=== PATIENT | male | born 1995 | race African-American/Black ===

== ENCOUNTER 2020-07-25 05:08 | Emergency (ER) | payer BC ==
[~2020-07-25] VITALS: Ht 335.3 cm; Wt 90.0 kg
[~2020-07-25 05:08] MED LIST: DOXY100C2 PO; PRED50TA PO
--- NOTE | 2020-07-25 05:14 | PHYS DOC ---
Past History Past Medical History: No Pertinent History, Asthma Past Surgical History: No Surgical History Smoking: Cigarettes, Greater than 1 pack/day Alcohol Use: Rarely Drug Use: Amphetamine, Cocaine, Heroin, Marijuana, Methamphetamine, Opiates General Adult HPI: HPI: ".. I ve been off drugs for a while... and I decided to treat myself... I did about a dime worth of heroin IV..."..." I have been doing good.... Off drugs... I just finished a 3-year half-way sentence in [place] for assaulting a [place] [employer] police officer with a gun...... but I was shooting up and that is the last thing I remember..." ..." I am fine now just a little wheezy ... It made my asthma kick up ....".." I good now. .. can I be discharged..."pt. Patient is a 24 year old male who presents with above hx and complaints OD on IV heroin. Patient admits use approximately $10 hit of heroin IV. Patient per paramedics was staying with his girlfriend. When she did not see him, she started searching the house and found him down. She call Paramedics and did CPR with respiration. Paramedics arrived. Gave pt. two mg of Narcan nasal. Pt. had rapid return to awareness and increased respirations. Pt. initially denied any drug use,. The patient does have a history of asthma. Patient does smoke tobacco and marijuana. Patient normally follows with Dr. Ordoñez. No recent travel or specific ill contacts. No history immunosuppression. Patient's only current complaint is some upper sternal tenderness on palpation and abrasions to his lips. Patient does also complain of some mild increased wheezing. Review of Systems: Review of Systems: Constitutional: Denies fever or chills Eyes: Denies change in visual acuity HENT: Denies nasal congestion or sore throat Respiratory: Denies cough or shortness of breath Cardiovascular: Denies chest pain or edema GI: Denies abdominal pain, nausea, vomiting, bloody stools or diarrhea : Denies dysuria Musculoskeletal: Denies back pain or joint pain Integument: Denies rash Neurologic: Denies headache, focal weakness or sensory changes Endocrine: Denies polyuria or polydipsia Lymphatic: Denies swollen glands Psychiatric: Denies depression or anxiety Family History: Family History: Noncontributory to presentation Current Medications: Current Meds: See nursing for home meds Allergies: Allergies: Allergies Coded Allergies Type Severity Reaction Last Updated Verified No Known Drug Allergies 03/17/15 No Physical Exam: PE: Constitutional:no acute distress, non-toxic appearance. [] HENT: Normocephalic, abrasions to buccal mucosa on lips, bilateral external ears normal, oropharynx moist, no oral exudates, nose normal. [] Eyes: PERRLA, EOMI, conjunctiva normal, no discharge. [] Neck: Normal range of motion, no tenderness, supple, no stridor. [] Cardiovascular: Tachycardia heart rate regular rhythm, no murmur [] Lungs & Thorax: Bilateral breath sounds equal apex with scattered wheezes on auscultation [] mild tenderness to upper sternum on palpation. Abdomen: Bowel sounds normal, soft, no tenderness, no masses, no pulsatile masses. [] Skin: Warm, dry, no erythema, no rash. Multiple tattoos. Back: No tenderness, no CVA tenderness. [] Extremities: No tenderness, no cyanosis, no clubbing, ROM intact, no edema. [] Neurologic: Alert and oriented X 3, moves all extremities on request, does have distal sensory, no focal deficits noted. [] Psychologic: Affect normal, judgement normal, mood normal. [] EKG: EKG: My interpretation EKG shows a sinus tachycardia 101 bpm. No findings acute STEMI of contralateral changes or acute morphology [] Radiology/Procedures: Radiology/Procedures: [][address] [address] IMAGING REPORT Signed PATIENT: OLI CHAVES ACCOUNT: [id number] : 1995 LOCATION: ER AGE: 24 SEX: M EXAM STATUS: PRE ER ORD. PHYSICIAN: BRIANNE MADRID MD REASON: cardiac arrest, cpr, OD heroin PROCEDURE: PORTABLE CHEST 1V AP chest x-ray HISTORY: Cardiac arrest, cardiopulmonary resuscitation, heroin drug overdose. FINDINGS: Heart size normal. Mediastinal silhouette is normal. No pneumothorax, pulmonary opacities or pleural effusions. Bones are unremarkable. IMPRESSION: No acute process. Electronically signed by: Domingo Reece MD (07/25/2020 5:47 AM) [facility] [place] DICTATED AND SIGNED BY: DOMINGO REECE MD DATE: 07/25/2046 CC: BRIANNE MADRID MD; ARISTIDES ORDOÑEZ ~MTH0 0 Heart Score: HEART Score for Chest Pain: HEART Score for Chest Pain Response (Comments) Value History Slighlty/Non-Suspicious 0 ECG Normal 0 Age < 45 0 Risk Factors 1 or 2 Risk Factors 1 Troponin < Normal Limit 0 Total 1 Risk Factors: Risk Factors: DM, Current or recent (<one month) smoker, HTN, HLP, family history of CAD, obesity. Risk Scores: Score 0 - 3: 2.5% MACE over next 6 weeks - Discharge Home Score 4 - 6: 20.3% MACE over next 6 weeks - Admit for Clinical Observation Score 7 - 10: 72.7% MACE over next 6 weeks - Early Invasive Strategies Course & Med Decision Making: Course & Med Decision Making Pertinent Labs and Imaging studies reviewed. (See chart for details) Encourage people patient to follow-up primary care. Encourage patient stop smoking. Encourage patient to avoid IV further illicit drug use. Encourage patient to consider in the hospital rehab or at least a rehab program. Currently patient declines referral at this time. Encourage patient to follow- up with counseling center in [place]. Patient return if any concerns. Take Tylenol and ibuprofen for pain. Patient do a course of prednisone 50 mg a day for 5 days. Use MDI 2 puffs 4 times a day. Patient return if any concerns. Impression: 1. Narcotic overdose-(reported use of IV heroin - suspect however Street Fentanyl) 2. Respiratory Failure 3. Asthma Exacerbation 4. Polysubstance abuse-(drug screen positive for methamphetamine, cocaine, marijuana tonight) [] Dragon Disclaimer: Dragon Disclaimer: This electronic medical record was generated, in whole or in part, using a voice recognition dictation system. Departure Departure: Referrals: ARISTIDES ORDOÑEZ (PCP) Scripts Prednisone (PREDNISONE) 50 Mg Tablet 50 MG PO DAILY for asthma ex for 5 Days, #5 TAB Prov: BRIANNE MADRID MD 07/25/20 Dragon Disclaimer This chart was dictated in whole or in part using Voice Recognition software in a busy, high-work load, and often noisy Emergency Department environment. It may contain unintended and wholly unrecognized errors or omissions. BRIANNE MADRID MD Jul 25, 2020 05:14
[2020-07-25] MEDS ORDERED: IV RINGERS SOLUTION,LACTATED 1,000 ML IV SCH (05:30)
[2020-07-25] MEDS ORDERED: predniSONE 10 MG TABLET PO ONE (05:30)
[2020-07-25] MEDS ORDERED: ALBUTEROL SULFATE 8GM INHALER. INH ONE (05:30)
[2020-07-25] MEDS ORDERED: PRED50TA PO (05:31)
--- NOTE | 2020-07-25 05:32 | EKG ---
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
[2020-07-25 05:34] LABS: BASO # 0.1 x10^3/uL (0.0-0.2); BASO % 1 % (0-3); EOS # 0.3 x10^3/uL (0.0-0.7); EOS % 4 % (0-3); HEMATOCRIT 48.9 % (39.0-53.0); HEMOGLOBIN 16.2 g/dL (13.0-17.5); LYMPH # 2.5 x10^3/uL (1.0-4.8); LYMPH % 32 % (24-48); MEAN CORPUSCULAR HEMOGLOBIN 31 pg (25-35); MEAN CORPUSCULAR HGB CONC 33 g/dL (31-37); MEAN CORPUSCULAR VOLUME 93 fL (79-100); MONO # 1.2 x10^3/uL (0.0-1.1); MONO % 15 % (0-9); NEUT # 3.8 x10^3uL (1.8-7.7); NEUT % 49 % (31-73); PLATELET COUNT 307 x10^3/uL (140-400); RED BLOOD COUNT 5.25 x10^6/uL (4.30-5.70); RED CELL DISTRIBUTION WIDTH 14.1 % (11.5-14.5); WHITE BLOOD COUNT 7.7 x10^3/uL (4.0-11.0)
[2020-07-25 05:47] LABS: CALCIUM 8.7 mg/dL (8.5-10.1); CREATININE 1.2 mg/dL (0.7-1.3); GFR 90.8
--- NOTE | 2020-07-25 05:50 | RAD ---
AP chest x-ray HISTORY: Cardiac arrest, cardiopulmonary resuscitation, heroin drug overdose. FINDINGS: Heart size normal. Mediastinal silhouette is normal. No pneumothorax, pulmonary opacities o r pleural effusions. Bones are unremarkable. IMPRESSION: No acute process. Electronically signed by: Chaz Reece MD (07/25/2020 5:47 AM) [facility]
[2020-07-25 05:59] LABS: DIRECT BILIRUBIN 0.1 mg/dL (0.0-0.2); MAGNESIUM 2.3 mg/dL (1.8-2.4); POTASSIUM 4.4 mmol/L (3.5-5.1); TOTAL BILIRUBIN 0.5 mg/dL (0.2-1.0); TOTAL PROTEIN 8.1 g/dL (6.4-8.2)
[2020-07-25 06:13] VITALS: BP 145/90
[2020-07-25] MEDS ORDERED: NEOMY/BACITR/POLYMYXIN OINT PACKET. TP ONE ×2 (06:25→06:30)
[2020-07-25 06:31] LABS: BARBITURATES NEG (NEG); BENZODIAZEPINES NEG (NEG); CANNABINOIDS POS (NEG); COCAINE POS (NEG); METHADONE NEG (NEG); OPIATES NEG (NEG); PHENCYCLIDINE NEG (NEG)
[2020-07-25 06:33] LABS: BACTERIA,URINE 0 /HPF (0-FEW); BILIRUBIN,URINE NEG (NEG); CLARITY,URINE HAZY; COLOR,URINE YELLOW; GLUCOSE,URINE NEG (NEG); NITRITE,URINE NEG (NEG); UROBILINOGEN,URINE 0.2 mg/dL (0.2 mg/dL); WBC,URINE 20-40 /HPF (0-4)
[2020-07-25 06:38] LABS: AMPHETAMINE/METHAMPHETAMINE POS (NEG)
== END 2020-07-25 06:33 | disposition home or self-care (01) ==
LOC: ER 05:08
DX: T40.1X1A Poisoning by heroin, accidental (unintentional), initial encounter (principal); S00.512A Abrasion of oral cavity, initial encounter; J96.90 Respiratory failure, unspecified, unspecified whether with hypoxia or hypercapnia; R07.2 Precordial pain; J45.901 Unspecified asthma with (acute) exacerbation; F19.10 Other psychoactive substance abuse, uncomplicated; F15.10 Other stimulant abuse, uncomplicated; F12.10 Cannabis abuse, uncomplicated; F14.10 Cocaine abuse, uncomplicated; F17.210 Nicotine dependence, cigarettes, uncomplicated; X58.XXXA Exposure to other specified factors, initial encounter; Y93.89 Activity, other specified; Y92.89 Other specified places as the place of occurrence of the external cause; Y99.8 Other external cause status
CPT/HCPCS: 36415; 71045; 80048; 80076; 80307; 81001; 82550; 83690; 83735; 83880; 84443; 84484; 85025; 87086; 93005; 94640; 99285; J7120; J7512; 94664

== ENCOUNTER 2020-09-07 19:19 | Emergency (ER) | payer BC ==
[~2020-09-07] VITALS: Ht 335.3 cm; Wt 90.0 kg
[2020-09-07] MEDS ORDERED: NALOXONE 0.4 MG/ML VIAL. ONE (19:23)
[2020-09-07] MEDS ORDERED: PROPOFOL 100 ML IV ONE (19:27)
[2020-09-07] MEDS ORDERED: SUCCINYLCHOLINE 200 MG/10 ML VIAL. ONE ×2 (19:27→20:00)
--- NOTE | 2020-09-07 19:39 | PHYS DOC ---
Past History Past Medical History: No Pertinent History, Asthma Past Medical History Polysubstance abuse, 13 ED visits for Drug Over Dose the past year Past Surgical History: No Surgical History Smoking: Cigarettes, Greater than 1 pack/day Alcohol Use: Rarely Drug Use: Amphetamine, Cocaine, Heroin, Marijuana, Methamphetamine, Opiates General Adult EDM: Chief Complaint: ALTERED MENTAL STATUS HPI: HPI: ".. He over dosage on all kinds of drugs.. 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 He usually shoots up Herion.. .. but there is no herion now in the house. .. this is 13 th time he come to a hospital for over dose.. I know. of.. I pretty sure he did not use Herion this time.. He was really sweating.. and hot.. the neighbor across the street give him 2 doses of Narcan .. one in his Lt leg,... and one IV... the neighbor said we need to cool him off.... put ice packs in his groin.. I didn't have any ice so we packed his groin with frozen hot dogs.. " Estephania Patient is a 25 year old male who presents with reported respiratory failure from narcotic over dose. Pt. given 4 mg narcan by neighbor and additional 4 mg by paramedics before arrival to the ER. Patient not to take anything airway snoring respirations. Sats 88% on nonrebreather. This is patient's overdose has caused him to present to the hospital for care. Patient drug of choice in the past been heroin. Patient does use other drugs such as methamphetamine, cocaine, benzodiazepines, street fentanyl, and marijuana. Patient normally shoots up with the illicit drugs. Patient rarely drinks alcohol. No recent travel. No severe ill contacts. Patient reportedly seen to be having some seizures, and then quit breathing and did receive CPR compressions and rescue breaths until the paramedics arrived. Review of Systems: Review of Systems: Constitutional: Denies fever or chills Eyes: Denies change in visual acuity HENT: Denies nasal congestion or sore throat Respiratory: Denies cough or shortness of breath Cardiovascular: Denies chest pain or edema GI: Denies abdominal pain, nausea, vomiting, bloody stools or diarrhea : Denies dysuria Musculoskeletal: Denies back pain or joint pain Integument: Denies rash Neurologic: Denies headache, focal weakness or sensory changes Endocrine: Denies polyuria or polydipsia Lymphatic: Denies swollen glands Psychiatric: Denies depression or anxiety Family History: Family History: Not currently available Current Medications: Current Meds: Current Medications Medications (Trade) Dose Ordered Sig/Charlie Start Time Stop Time Status Last Admin Dose Admin Naloxone HCl (Narcan) 0.4 mg STK-MED ONCE 09/07/20 19:23 09/07/20 19:23 DC Propofol 100 ml @ As Directed STK-MED ONCE 09/07/20 19:27 09/07/20 19:27 DC Succinylcholine Chloride (Anectine) 200 mg STK-MED ONCE 09/07/20 19:27 09/07/20 19:27 DC Allergies: Allergies: Allergies Coded Allergies Type Severity Reaction Last Updated Verified No Known Drug Allergies 03/17/15 No Physical Exam: PE: Constitutional: in acute distress, and intoxicated appearance. [] HENT: Normocephalic, atraumatic, bilateral external ears normal, oropharynx moist, no oral exudates, nose normal. [] Eyes: PERRLA, EOMI, conjunctiva injected, no discharge. [] Neck: . Trachea midline, no gag Cardiovascular: Tachycardia heart rate regular rhythm, no murmur [] Lungs & Thorax: Bilateral breath sounds wheezing, rhonchi over right lung castillo on auscultation [] Abdomen: Bowel sounds decreased,, soft, no tenderness, no masses, no pulsatile masses. [] Skin: Warm, diaphoretic, no erythema, no rash. Cyanotic fingers and toes Back: No tenderness, no CVA tenderness. [] Extremities: No tenderness, peripheral cyanosis, no clubbing, ROM intact, no edema. [] Neurologic: Discoordinated jerks and movement Psychologic: Nonresponsive to noxious stimuli EKG: EKG: EKG shows sinus rhythm at 71 bpm. No acute morphology at 2131 hrs. [] Radiology/Procedures: Radiology/Procedures: [address] [address] IMAGING REPORT Signed PATIENT: OLI CHAVES ACCOUNT: [id number] : 1995 LOCATION: ER AGE: 25 SEX: M EXAM STATUS: REG ER ORD. PHYSICIAN: BRIANNE MADRID MD REASON: hypoxia, OMNI 350, 100ml PROCEDURE: CT ANGIOGRAPHY CHEST Exam: CT of chest with contrast INDICATION: Hypoxia TECHNIQUE: Sequential axial images through the chest obtained following the administration 100 mL of Omni 350 IV contrast. Sagittal and coronal reformatted images were reconstructed from the axial data and reviewed. 3-D reformatted images were reconstructed from the axial data and reviewed. Comparisons: None FINDINGS: Visualized portions of the thyroid are unremarkable. No enlarged mediastinal lymph nodes. Heart size is normal. No pericardial effusion. Thoracic aorta has a normal course and caliber. Pulmonary artery is not enlarged. Small amount of residual thymic tissue is noted. Airways are patent. There are are a few tiny foci of air noted in the anterior mediastinum. Endotracheal tube noted in the trachea. Linear bandlike opacity seen at the right upper and lower lobe favored represent atelectasis. No pleural effusion or thickening. Visualized upper abdomen is unremarkable. No suspicious osseous lesions or acute fractures. IMPRESSION: 1. Few tiny foci of air within the anterior mediastinum which is nonspecific. Correlate for recent procedure or trauma. 2. New bandlike opacity in the right lung favored represent atelectasis 3. No pulmonary embolus identified within the main, lobar or segmental pulmonary arteries. Exposure: One or more of the following in the visualized dose reduction techniques were utilized for this examination: 1. Automated exposure control 2. Adjustment of the MA and/or KV according to patient size 3. Use of iterative of reconstructive technique Electronically signed by: Alex Ram MD (09/07/2020 9:25 PM) [facility] DICTATED AND SIGNED BY: ALEX RAM MD DATE: 09/07/202118 CC: BRIANNE MADRID MD; ARISTIDES ORDOÑEZ ~MTH0 [address] [address] IMAGING REPORT Signed PATIENT: OLI CHAVES ACCOUNT: [id number] : 1995 LOCATION: ER AGE: 25 SEX: M EXAM STATUS: REG ER ORD. PHYSICIAN: BRIANNE MADRID MD REASON: mental status change PROCEDURE: CT HEAD AND CERVICAL SPINE WO Exam: CT head and cervical spine INDICATION: Mental status change TECHNIQUE: Sequential axial images through the head and cervical spine were obtained without the administration of IV contrast. Comparisons: None FINDINGS: Head: No focal parenchymal lesion or hemorrhage is identified. There is no midline shift or sulcal effacement. No acute vascular territory infarction is identified. Urban-white distinction is preserved. The ventricular system is within normal limits without compression hydrocephalus. The basal cisterns are well maintained. The visualized portions of the paranasal sinuses and mastoid air cells are well- pneumatized. No acute fractures. Cervical spine: Vertebral body heights and alignment are well-maintained. Fracture to the cervical spine is not identified. No significant spondylotic change in cervical spine. Visualized paraspinal soft tissues are unremarkable. IMPRESSION: 1. No acute intracranial abnormality. 2. Negative CT C-spine for acute traumatic injury. Exposure: One or more of the following in the visualized dose reduction techniques were utilized for this examination: 1. Automated exposure control 2. Adjustment of the MA and/or KV according to patient size Use of iterative of reconstructive technique Electronically signed by: Alex Ram MD (09/07/2020 8:55 PM) [facility] DICTATED AND SIGNED BY: ALEX RAM MD DATE: 09/07/202050 CC: BRIANNE MADRID MD; ARISTIDES ORDOÑEZ ~MTH0 0 [][place] [address] IMAGING REPORT Signed PATIENT: OLI CHAVES ACCOUNT: [id number] : 1995 LOCATION: ER AGE: 25 SEX: M EXAM STATUS: REG ER ORD. PHYSICIAN: BRIANNE MADRID MD REASON: respiratory failure PROCEDURE: PORTABLE CHEST 1V Exam: Chest one view INDICATION: Respiratory failure TECHNIQUE: Frontal view of the chest Comparisons: 07/25/2020 FINDINGS: Endotracheal tube with tip approximately 3 cm above the hardy. The cardiomediastinal silhouette and pulmonary vessels are within normal limits. Strandy opacity at the right lung base. No pleural effusion. IMPRESSION: Right sided atelectasis. Lines and tubes described above. Electronically signed by: Alex Ram MD (09/07/2020 9:26 PM) [facility] DICTATED AND SIGNED BY: ALEX RAM MD DATE: 09/07/202124 CC: BRIANNE MADRID MD; ARISTIDES ORDOÑEZ ~MTH0 0 Heart Score: C/O Chest Pain: N/A Risk Factors: Risk Factors: DM, Current or recent (<one month) smoker, HTN, HLP, family history of CAD, obesity. Risk Scores: Score 0 - 3: 2.5% MACE over next 6 weeks - Discharge Home Score 4 - 6: 20.3% MACE over next 6 weeks - Admit for Clinical Observation Score 7 - 10: 72.7% MACE over next 6 weeks - Early Invasive Strategies Course & Med Decision Making: Course & Med Decision Making Pertinent Labs and Imaging studies reviewed. (See chart for details) Procedure note-the patient Patient and respiratory failure on arrival-and protecting airway. Patient rep ortedly overdosed on unknown drug.. Prior to arrival had rescue breaths, compressions, and approximately 6 mg of Narcan IM and IV. Patient reportedly had some seizure activity per family and was having complaints of fever very diaphoretic. Patient sedated with Versed, lidocaine, propofol and succinylcholine. 7.5 tube passed with glide scope. With CO2 exchange and follow-up with tube. Breath sounds bilaterally. No breath sounds over abdomen. OG in place all story. OGT and ETT position also confirmed by chest x-ray. Did appear to have aspirated food contents coming out of trachea. Critical care time 90 minutes-not counting procedure, vent management, history time spent with family. Discussed presentation, testing and treatment plan with - accept in transfer to [facility] See Critical Care /Code sheet for details. Impression: 1. Respiratory Failure- Suspect Narcotic Street Fentanyl versus unknown substance- no response to Narcan x 6 mg (Hypoxia and Hypercarbia) 2. Hx of 13 Narcotic Overdose by estephania's record 3. Aspiration Pneumonitis 4. Hypoxia-with 100% oxygen-( oxygenation gradually improved with suctioning .treatments and vent management) 5. Metabolic and respiratory acidosis 6. Possible rhabdomyolysis-elevated CK 1904 and protein over 100 mg in urine, over 40 WBC 7. Polysubstance abuse= today's drug screen positive for meth benzos and marijuana [] Dragon Disclaimer: Dragon Disclaimer: This electronic medical record was generated, in whole or in part, using a voice recognition dictation system. Departure Departure: Referrals: ARISTIDES ORDOÑEZ (PCP) [place] Disclaimer This chart was dictated in whole or in part using Voice Recognition software in a busy, high-work load, and often noisy Emergency Department environment. It may contain unintended and wholly unrecognized errors or omissions. Dragon Disclaimer This chart was dictated in whole or in part using Voice Recognition software in a busy, high-work load, and often noisy Emergency Department environment. It may contain unintended and wholly unrecognized errors or omissions. BRIANNE MADRID MD Sep 07, 2020 19:39
[2020-09-07] MEDS ORDERED: IPRATRPIUM/ALBUTEROL 0.5/2.5MG 3 ML NEBU. ONE (19:46)
[2020-09-07 19:59] LABS: BASO # 0.1 x10^3/uL (0.0-0.2); BASO % 1 % (0-3); EOS # 0.5 x10^3/uL (0.0-0.7); EOS % 4 % (0-3); HEMATOCRIT 44.1 % (39.0-53.0); HEMOGLOBIN 14.6 g/dL (13.0-17.5); LYMPH % 31 % (24-48); MEAN CORPUSCULAR HEMOGLOBIN 31 pg (25-35); MEAN CORPUSCULAR HGB CONC 33 g/dL (31-37); MEAN CORPUSCULAR VOLUME 94 fL (79-100); MONO # 1.8 x10^3/uL (0.0-1.1); MONO % 14 % (0-9); NEUT # 6.6 x10^3uL (1.8-7.7); NEUT % 50 % (31-73); PLATELET COUNT 299 x10^3/uL (140-400); RED BLOOD COUNT 4.68 x10^6/uL (4.30-5.70); RED CELL DISTRIBUTION WIDTH 13.5 % (11.5-14.5); WHITE BLOOD COUNT 13.1 x10^3/uL (4.0-11.0)
[2020-09-07] MEDS ORDERED: IPRATRPIUM/ALBUTEROL 0.5/2.5MG 3 ML NEBU. NEB ONE (20:00)
[2020-09-07] MEDS ORDERED: IV RINGERS SOLUTION,LACTATED 1,000 ML IV SCH (20:00)
[2020-09-07] MEDS ORDERED: LIDOCAINE 2% SYRINGE 100 MG/5 ML DISP.SYRIN. ONE (20:00)
[2020-09-07] MEDS ORDERED: KETAMINE HCL 500 MG/10 ML VIAL. IV ONE (20:15)
[2020-09-07] MEDS ORDERED: SUCCINYLCHOLINE 200 MG/10 ML VIAL. IV ONE (20:15)
[2020-09-07 20:19] LABS: BARBITURATES NEG (NEG); BENZODIAZEPINES POS (NEG); CANNABINOIDS POS (NEG); COCAINE NEG (NEG); METHADONE NEG (NEG); OPIATES NEG (NEG); PHENCYCLIDINE NEG (NEG)
[2020-09-07 20:21] LABS: AMPHETAMINE/METHAMPHETAMINE POS (NEG)
[2020-09-07 20:24] LABS: ALBUMIN 3.8 g/dL (3.4-5.0); C REACTIVE PROTEIN 3.8 mg/L (0-3.3); CALCIUM 8.6 mg/dL (8.5-10.1); CREATININE 1.5 mg/dL (0.7-1.3); DIRECT BILIRUBIN 0.2 mg/dL (0.0-0.2); GFR 69.6; MAGNESIUM 2.5 mg/dL (1.8-2.4); TOTAL BILIRUBIN 0.7 mg/dL (0.2-1.0); TOTAL PROTEIN 7.4 g/dL (6.4-8.2)
[2020-09-07 20:26] LABS: POTASSIUM 2.9 mmol/L (3.5-5.1)
[2020-09-07] MEDS ORDERED: IOHEXOL 350 MG/ML 100 ML VIAL. IV ONE (20:30)
[2020-09-07] MEDS ORDERED: CONTRAST GIVEN. MC PRN (20:30)
[2020-09-07 20:39] LABS: BACTERIA,URINE 0 /HPF (0-FEW); BILIRUBIN,URINE SMALL (NEG); CLARITY,URINE HAZY; COLOR,URINE YELLOW; GLUCOSE,URINE 250 mg/dL (NEG); NITRITE,URINE NEG (NEG); SQUAMOUS EPITHELIAL CELL,UR OCC /LPF; WBC,URINE >40 /HPF (0-4)
[2020-09-07] MEDS ORDERED: MIDAZOLAM HCL PF 5 MG/5 ML VIAL. IV ONE (20:45)
--- NOTE | 2020-09-07 20:58 | RAD ---
Exam: CT head and cervical spine INDICATION: Mental status change TECHNIQUE: Sequential axial images through the head and cervical spine were obtained without the admi nistration of IV contrast. Comparisons: None FINDINGS: Head: No focal parenchymal lesion or hemorrhage is identified. There is no midline shift or sulcal effaceme nt. No acute vascular territory infarction is identified. Urban-white distinction is preserved. The ventricular system is within normal limits without compression hydrocephalus. The basal cisterns are well maintained. The visualized portions of the paranasal sinuses and mastoid air cells are well-pneumatized. No acute fractures. Cervical spine: Vertebral body heights and alignment are well-maintained. Fracture to the cervical spine is not identified. No significant spondylotic change in cervical spine. Visualized paraspinal soft tissues are unremarkable. IMPRESSION: 1. No acute intracranial abnormality. 2. Negative CT C-spine for acute traumatic injury. Exposure: One or more of the following in the visualized dose reduction techniques were utilized for this examination: 1. Automated exposure control 2. Adjustment of the MA and/or KV according to patient size Use of iterative of reconstructive technique Electronically signed by: Alex Reid MD (09/07/2020 8:55 PM) [facility]
[2020-09-07] MEDS ORDERED: POTASSIUM CHLORIDE 20MEQ 100 ML IV SCH (21:00)
[2020-09-07] MEDS ORDERED: IV NORMAL SALINE 1,000ML 1,000 ML IV ONE (21:00)
[2020-09-07] MEDS ORDERED: IV RINGERS SOLUTION,LACTATED 1,000 ML IV ONE (21:00)
[2020-09-07] MEDS ORDERED: SODIUM BICARB ADULT 8.4% 50 MEQ/50 ML DISP.SYRIN. IV ONE (21:00)
[2020-09-07 21:10] LABS: % ATYL 1 % (0-0); % EOS 3 % (0-5); % LYMPHS 26 % (24-48); % MONOS 16 % (0-10); % SEGS 54 % (35-66); PLT ESTIMATE ADEQUATE (ADEQUATE)
[2020-09-07] MEDS ORDERED: cefTRIAXone SODIUM 1 GM VIAL ONE (21:25)
[2020-09-07] MEDS ORDERED: IV NORMAL SALINE 50ML 50 ML ONE (21:25)
--- NOTE | 2020-09-07 21:28 | RAD ---
Exam: CT of chest with contrast INDICATION: Hypoxia TECHNIQUE: Sequential axial images through the chest obtained following the administration 100 mL of Omni 350 IV contrast. Sagittal and coronal reformatted images were reconstructed from the axial data and reviewed. 3-D reformatted images were reconstructed from the axial data and reviewed. Comparisons: None FINDINGS: Visualized portions of the thyroid are unremarkable. No enlarged mediastinal lymph nodes. Heart size is normal. No pericardial effusion. Thoracic aorta has a normal course and caliber. Pulmon armando artery is not enlarged. Small amount of residual thymic tissue is noted. Airways are patent. There are are a few tiny foci of air noted in the anterior mediastinum. Endotrach eal tube noted in the trachea. Linear bandlike opacity seen at the right upper and lower lobe favored represent atelectasis. No pleural effusion or thickening. Visualized upper abdomen is unremarkable. No suspicious osseous lesions or acute fractures. IMPRESSION: 1. Few tiny foci of air within the anterior mediastinum which is nonspecific. Correlate for recent p rocedure or trauma. 2. New bandlike opacity in the right lung favored represent atelectasis 3. No pulmonary embolus identified within the main, lobar or segmental pulmonary arteries. Exposure: One or more of the following in the visualized dose reduction techniques were utilized for this examination: 1. Automated exposure control 2. Adjustment of the MA and/or KV according to patient size 3. Use of iterative of reconstructive technique Electronically signed by: Alex Reid MD (09/07/2020 9:25 PM) [facility]
--- NOTE | 2020-09-07 21:29 | RAD ---
Exam: Chest one view INDICATION: Respiratory failure TECHNIQUE: Frontal view of the chest Comparisons: 07/25/2020 FINDINGS: Endotracheal tube with tip approximately 3 cm above the hardy. The cardiomediastinal silhouette and pulmonary vessels are within normal limits. Strandy opacity at the right lung base. No pleural effusion. IMPRESSION: Right sided atelectasis. Lines and tubes described above. Electronically signed by: Alex Reid MD (09/07/2020 9:26 PM) [facility]
[2020-09-07 21:44] VITALS: BP 137/88
[2020-09-07 22:21] LABS: ACETAMIN < 2 mcg/mL (10-30); SALIC < 2.8 mg/dL (2.8-20.0)
[2020-09-07 23:16] LABS: BGAS PH 7.26 (7.35-7.46)
[2020-09-07 23:21] LABS: BGAS PH 7.47 (7.35-7.46)
--- NOTE | 2020-09-08 00:35 | EKG ---
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
== END 2020-09-07 21:52 | disposition home or self-care (01) ==
LOC: ER 19:19
DX: T40.2X1A Poisoning by other opioids, accidental (unintentional), initial encounter (principal); J69.0 Pneumonitis due to inhalation of food and vomit; J96.92 Respiratory failure, unspecified with hypercapnia; J96.91 Respiratory failure, unspecified with hypoxia; E87.4 Mixed disorder of acid-base balance; R41.82 Altered mental status, unspecified; F15.10 Other stimulant abuse, uncomplicated; F12.10 Cannabis abuse, uncomplicated; F17.210 Nicotine dependence, cigarettes, uncomplicated; Y92.89 Other specified places as the place of occurrence of the external cause
CPT/HCPCS: 31500; 36415; 51702; 70450; 71045; 71275; 72125; 80048; 80076; 80307; 80329; 81001; 82550; 82803; 83690; 83735; 84443; 84484; 85007; 85025; 85610; 85730; 86140; 87086; 93005; 94640; 96361; 96365; 96366; 96367; 96368; 96375; 99291; 99292; J0330; J0696; J2250; J3480; J3490; J7030; J7120; Q9967; G0480

== ENCOUNTER 2021-01-13 01:47 | Emergency (ER) | payer BC ==
[~2021-01-13] VITALS: Ht 170.2 cm; Wt 90.0 kg
[2021-01-13] MEDS ORDERED: NALOXONE 2 MG/2 ML DISP.SYRIN. IV ONE (02:00)
[2021-01-13] MEDS ORDERED: IV NORMAL SALINE 1,000ML 1,000 ML IV ONE (02:00)
[2021-01-13] MEDS ORDERED: ONDANSETRON PF 4 MG/2 ML VIAL. IVP ONE (02:00)
--- NOTE | 2021-01-13 02:00 | PHYS DOC ---
Past History Past Medical History: Asthma Past Surgical History: No Surgical History Smoking: Cigarettes, Greater than 1 pack/day Alcohol Use: Rarely Drug Use: Amphetamine, Cocaine, Heroin, Marijuana, Methamphetamine, Opiates General Adult EDM: Chief Complaint: OVERDOSE HPI: HPI: 25-year-old male presents via EMS with suspected opiate overdose. EMS was called and when they arrived the patient was is laying mcfp out of a doorway. He was unresponsive but breathing. They gave 0.5 of Narcan and the patient's breathing improved significantly. He became more aware and they transferred him to the emergency room. The patient is still very drowsy and not answering direct questions very well. He denies any medical complaints. Review of Systems: Review of Systems: Constitutional: Denies fever or chills Respiratory: Denies cough or shortness of breath Cardiovascular: Denies chest pain or edema GI: Denies abdominal pain, nausea, vomiting, bloody stools or diarrhea Musculoskeletal: Denies back pain or joint pain Neurologic: Denies headache Psychiatric: Denies depression or anxiety Full review of systems is unavailable due to patient's current condition. Allergies: Allergies: Allergies Coded Allergies Type Severity Reaction Last Updated Verified No Known Drug Allergies 01/13/21 No Physical Exam: PE: Constitutional: Well developed, well nourished, intoxicated. [] HENT: Normocephalic, atraumatic, bilateral external ears normal, oropharynx dry, no oral exudates, nose normal. [] Eyes: PERRLA, EOMI, conjunctiva normal, no discharge. [] Neck: Normal range of motion, no tenderness, supple, no stridor. [] Cardiovascular: Heart rate regular rhythm, no murmur [] Lungs & Thorax: Bilateral breath sounds clear to auscultation [] Abdomen: Bowel sounds normal, soft, no tenderness, no masses, no pulsatile masses. [] Skin: Warm, dry, no erythema, no rash. [] Back: No tenderness, no CVA tenderness. [] Extremities: No tenderness, no cyanosis, no clubbing, ROM intact, no edema. [] Neurologic: Alert and oriented X 3, normal motor function, normal sensory function, no focal deficits noted. [] Psychologic: Affect normal, judgement normal, mood normal. [] EKG: EKG: [] Radiology/Procedures: Radiology/Procedures: [] Heart Score: C/O Chest Pain: N/A Risk Factors: Risk Factors: DM, Current or recent (<one month) smoker, HTN, HLP, family history of CAD, obesity. Risk Scores: Score 0 - 3: 2.5% MACE over next 6 weeks - Discharge Home Score 4 - 6: 20.3% MACE over next 6 weeks - Admit for Clinical Observation Score 7 - 10: 72.7% MACE over next 6 weeks - Early Invasive Strategies Course & Med Decision Making: Course & Med Decision Making Pertinent Labs and Imaging studies reviewed. (See chart for details) The patient became more aware during his stay in the emergency room. He denies any specific complaints. The patient has an elevated blood sugar. This is consistent with labs in the chart. His anion gap is normal. Patient also has an elevated creatinine of 1.7. This is similar to previous of 1.5. The patient is getting a liter of normal saline. He has not currently been to duty additional Narcan. The patient did need an additional 1 mg of Narcan as he has respirations slowed while he was sleeping. He is now more than 4 hours past his ingestion. He is alert and aware. He is stable for discharge at this time. [] Dragon Disclaimer: Dragon Disclaimer: This electronic medical record was generated, in whole or in part, using a voice recognition dictation system. Departure Departure: Impression: Primary Impression: Opiate overdose Qualified Codes: T40.601A - Poisoning by unspecified narcotics, accidental (unintentional), initial encounter Disposition: HOME / SELF CARE / HOMELESS Condition: IMPROVED Referrals: ARISTIDES ORDOÑEZ (PCP) Patient Instructions: Opiate Dependence, Overdose, Accidental JITENDRA CROWLEY DO Jan 13, 2021 01:59
[2021-01-13 02:24] LABS: BASO # 0.1 x10^3/uL (0.0-0.2); BASO % 1 % (0-3); EOS # 0.2 x10^3/uL (0.0-0.7); EOS % 2 % (0-3); HEMATOCRIT 43.8 % (39.0-53.0); HEMOGLOBIN 14.5 g/dL (13.0-17.5); LYMPH # 3.1 x10^3/uL (1.0-4.8); LYMPH % 39 % (24-48); MEAN CORPUSCULAR HEMOGLOBIN 31 pg (25-35); MEAN CORPUSCULAR HGB CONC 33 g/dL (31-37); MEAN CORPUSCULAR VOLUME 94 fL (79-100); MONO # 0.9 x10^3/uL (0.0-1.1); MONO % 11 % (0-9); NEUT # 3.8 x10^3uL (1.8-7.7); NEUT % 47 % (31-73); PLATELET COUNT 220 x10^3/uL (140-400); RED BLOOD COUNT 4.65 x10^6/uL (4.30-5.70); RED CELL DISTRIBUTION WIDTH 13.8 % (11.5-14.5)
[2021-01-13 02:28] LABS: CALCIUM 8.8 mg/dL (8.5-10.1); CREATININE 1.7 mg/dL (0.7-1.3); GFR 60.2; POTASSIUM 3.9 mmol/L (3.5-5.1)
[2021-01-13 02:34] LABS: ALBUMIN/GLOBULIN RATIO 1.2 (1.0-1.7); TOTAL BILIRUBIN 0.6 mg/dL (0.2-1.0); TOTAL PROTEIN 7.4 g/dL (6.4-8.2)
[2021-01-13 05:48] VITALS: BP 103/51
== END 2021-01-13 06:00 | disposition home or self-care (01) ==
LOC: ER 01:47
DX: T40.601A Poisoning by unspecified narcotics, accidental (unintentional), initial encounter (principal); R40.0 Somnolence; J45.909 Unspecified asthma, uncomplicated; F17.210 Nicotine dependence, cigarettes, uncomplicated; F15.10 Other stimulant abuse, uncomplicated; F12.10 Cannabis abuse, uncomplicated; F11.10 Opioid abuse, uncomplicated; Y92.89 Other specified places as the place of occurrence of the external cause
CPT/HCPCS: 36415; 80053; 85025; 96361; 96374; 96375; 99285; J2310; J2405; J7030